=== PATIENT | female | born 1975 | race American Indian/Alaskan Native ===

== ENCOUNTER 2019-04-14 10:59 | Emergency (ER) | payer SELFPAY ==
--- NOTE | 2019-04-14 12:45 | Event Note ---
ED Screening Note ED Screening Note: states she has a hx of DM and HTN states she has lightheadedness no headache no vision changes no numbness no unilateral weakness does not take any medications no PCP This initial assessment/diagnostic orders/clinical plan/treatment(s) is/are subject to change based on patients health status, clinical progression and re- assessment by fellow clinical providers in the ED. Further treatment and workup at subsequent clinical providers discretion. Patient/guardian urged not to elope from the ED as their condition may be serious if not clinically assessed and managed. Initial orders include: labs
[2019-04-14 14:01] LABS: Basophils % (Auto) 0.9 % (0.0-1.8); Eosinophils # (Auto) 0.1 K/mm3 (0.0-0.4); Eosinophils % (Auto) 1.3 % (0.0-4.3); Hematocrit 38.6 % (30.3-42.9); Hemoglobin 12.8 gm/dl (10.1-14.3); Lymphocytes % (Auto) 50.9 % (13.4-35.0); Mean Corpuscular HGB Conc 33 % (30-34); Mean Corpuscular Volume 87 fl (79-97); Monocytes # (Auto) 0.4 K/mm3 (0.0-0.8); Monocytes % (Auto) 6.4 % (0.0-7.3); Platelet Count 210 K/mm3 (140-440); Red Blood Count 4.44 M/mm3 (3.65-5.03); Red Cell Distribution Width 12.9 % (13.2-15.2)
[2019-04-14 14:19] LABS: BUN/Creatinine Ratio 28; Blood Urea Nitrogen 14 mg/dL (7-17); Calcium 10.1 mg/dL (8.4-10.2); Hemolysis Index 31
[2019-04-14 15:36] LABS: Alanine Aminotransferase 92 units/L (7-56); Albumin 4.1 g/dL (3.9-5)
[2019-04-14 15:44] LABS: Bilirubin,Direct < 0.2 mg/dL (0-0.2)
[2019-04-14] MEDS ORDERED: amLODIPine 5 MG TAB PO ONE (16:10)
[2019-04-14] MEDS ORDERED: metFORMIN 500 MG TAB PO ONE (16:10)
--- NOTE | 2019-04-14 16:11 | Emergency Department Report ---
ED General Adult HPI - General Chief complaint: High BP Stated complaint: DIZZY/HIGH GLUCOSE/HBP Time Seen by Provider: 04/14/19 12:42 Source: patient Mode of arrival: Ambulatory Limitations: No Limitations - History of Present Illness Initial comments: 43 YO COMES TO ER CONCERNED HER BP IS UP. BLOOD SUGAR FOUND TO BE INC. SHE HAS A/C HTN AND DM AND IS OFF MEDS. DOES NOT HAVE PCP. NO CP NO SOB NAD ON EXAM NO FOCAL NEURO DEF NO HEADACHE -: Gradual, week(s) Associated Symptoms: denies other symptoms Treatments Prior to Arrival: none - Related Data Previous Rx's Medication Instructions Recorded Last Taken Type hydroCHLOROthiazide [HCTZ] 25 mg PO QDAY #30 tablet 04/14/19 Unknown Rx metFORMIN [Glucophage] 500 mg PO BID #60 tablet 04/14/19 Unknown Rx Allergies Allergy/AdvReac Type Severity Reaction Status Date / Time No Known Allergies Allergy Verified 07/22/15 17:03 ED Review of Systems ROS: Stated complaint: DIZZY/HIGH GLUCOSE/HBP Other details as noted in HPI Comment: All other systems reviewed and negative ED Past Medical Hx - Past Medical History Previous Medical History?: Yes Hx Hypertension: Yes Hx Diabetes: Yes - Surgical History Past Surgical History?: Yes Additional Surgical History: fibroid - Family History Family history: no significant - Social History Smoking Status: Never Smoker Substance Use Type: None - Medications Home Medications: Home Medications Medication Instructions Recorded Confirmed Last Taken Type hydroCHLOROthiazide [HCTZ] 25 mg PO QDAY #30 tablet 04/14/19 Unknown Rx metFORMIN [Glucophage] 500 mg PO BID #60 tablet 04/14/19 Unknown Rx ED Physical Exam - General Limitations: No Limitations General appearance: alert, in no apparent distress - Head Head exam: Present: atraumatic, normocephalic - Eye Eye exam: Present: normal appearance - ENT ENT exam: Present: mucous membranes moist - Neck Neck exam: Present: normal inspection - Respiratory Respiratory exam: Present: normal lung sounds bilaterally. Absent: respiratory distress - Cardiovascular Cardiovascular Exam: Present: regular rate, normal rhythm. Absent: systolic murmur, diastolic murmur, rubs, gallop - GI/Abdominal GI/Abdominal exam: Present: soft, normal bowel sounds - Extremities Exam Extremities exam: Present: normal inspection - Back Exam Back exam: Present: normal inspection - Neurological Exam Neurological exam: Present: alert, oriented X3 - Psychiatric Psychiatric exam: Present: normal affect, normal mood - Skin Skin exam: Present: warm, dry, intact, normal color. Absent: rash ED Course Vital Signs 04/14/19 12:27 Temperature 98.3 F Pulse Rate 83 Respiratory 17 Rate Blood Pressure 185/100 O2 Sat by Pulse 100 Oximetry ED Medical Decision Making - Lab Data Result diagrams: 04/14/19 13:45 04/14/19 13:45 - Medical Decision Making Labs 04/14/19 04/14/19 04/14/19 12:56 13:45 13:45 WBC 5.9 RBC 4.44 Hgb 12.8 Hct 38.6 MCV 87 MCH 29 MCHC 33 RDW 12.9 L Plt Count 210 Lymph % (Auto) 50.9 H [place] % (Auto) 6.4 Eos % (Auto) 1.3 Baso % (Auto) 0.9 Lymph # 3.0 [place] # 0.4 Eos # 0.1 Baso # 0.0 Seg Neutrophils % 40.5 Seg Neutrophils # 2.4 VBG pH Sodium 140 Potassium 4.0 Chloride 100.3 Carbon Dioxide 24 Anion Gap 20 BUN 14 Creatinine 0.5 L Estimated GFR > 60 BUN/Creatinine Ratio 28 Glucose 301 H POC Glucose 288 H Calcium 10.1 Total Bilirubin Direct Bilirubin Indirect Bilirubin AST ALT Alkaline Phosphatase Total Protein Albumin Albumin/Globulin Ratio 04/14/19 04/14/19 04/14/19 14:46 14:46 16:14 WBC RBC Hgb Hct MCV MCH MCHC RDW Plt Count Lymph % (Auto) [place] % (Auto) Eos % (Auto) Baso % (Auto) Lymph # [place] # Eos # Baso # Seg Neutrophils % Seg Neutrophils # VBG pH 7.416 Sodium Potassium Chloride Carbon Dioxide Anion Gap BUN Creatinine Estimated GFR BUN/Creatinine Ratio Glucose POC Glucose 264 H Calcium Total Bilirubin 0.30 Direct Bilirubin < 0.2 Indirect Bilirubin 0.1 AST 69 H ALT 92 H Alkaline Phosphatase 181 H Total Protein 8.0 Albumin 4.1 Albumin/Globulin Ratio 1.1 Vital Signs (72 hours) 04/14/19 12:27 Temperature 98.3 F Pulse Rate 83 Respiratory 17 Rate Blood Pressure 185/100 O2 Sat by Pulse 100 Oximetry LABS NOTED BG RECHECKED IN ACC AND WAS 264 PT RESTARTED ON METFORMIN NORVASC PO HERE HCTZ STARTED AT HOME REFERRAL GIVEN TO PCP LONG DISCUSSION WITH PT REGARDING COMPLIANCE AND COMPLICATIONS OF NOT TAKING HER MEDS NO CP NO SOB AMBULATORY NON TOXIC ON EXAM DC HOME WITH RX AND PCP FOLLOWUP Critical care attestation.: If time is entered above; I have spent that time in minutes in the direct care of this critically ill patient, excluding procedure time. ED Disposition Clinical Impression: History of hypertension, History of diabetes mellitus, Non-adherence to medical treatment, Hyperglycemia, High blood pressure Disposition: DC-01 TO HOME OR SELFCARE Is pt being admited?: No Does the pt Need Aspirin: No Condition: Stable Instructions: Diabetes Mellitus Type 2 in Adults (ED), Hypertension (ED) Additional Instructions: TAKE MEDS ORDERED TODAY FOLLOW UP WITH PCP NEXT WEEK REFERRAL GIVEN BELOW DIABETIC DIET STAY WELL HYDRATED ACTIVITY TOLERATED Prescriptions: metFORMIN [Glucophage] 500 mg PO BID #60 tablet hydroCHLOROthiazide [HCTZ] 25 mg PO QDAY #30 tablet Referrals: MATT NAPOLES MD [Staff Physician] - 3-5 Days Time of Disposition: 16:16
[2019-04-14 16:35] VITALS: BP 195/102
== END 2019-04-14 17:03 | disposition home or self-care (01) ==
LOC: ED 10:59
DX: E11.65 Type 2 diabetes mellitus with hyperglycemia (principal); I10 Essential (primary) hypertension; Z91.19 Patient's noncompliance with other medical treatment and regimen; Z79.899 Other long term (current) drug therapy
CPT/HCPCS: 36415; 80048; 80076; 82805; 82962; 85025